=== PATIENT | female | born 1940 | race Caucasian/White ===

== ENCOUNTER → 2021-06-04 09:55 | Outpatient (CLI) | payer SELFPAY ==
[2020-11-12 13:01] VITALS: BMI 24.0
--- NOTE | 2021-06-04 10:02 | CDU_ITS ---
Reason For Study: Carotid stenosis Rt. Velocities/BP Lt. Velocities/BP Prox CCA 86.5/14.7 cm/sec. Prox CCA 89/21.2 cm/sec. Mid CCA 74.7/21.3 cm/sec. Mid CCA 78.6/21.2 cm/sec. Dist CCA 68.2/13.4 cm/sec. Dist CCA 70.8/17.3 cm/sec. Prox ICA 63/17.3 cm/sec. Prox ICA 160.9/46.7 cm/sec. Mid ICA 74.7/21.3 cm/sec. Mid ICA 110.1/31.6 cm/sec. Dist ICA 99.5/30.4 cm/sec. Dist ICA 79/26.2 cm/sec. Rt. ICA/CCA = 1.33. Lt. ICA/CCA = 2.05. Prox ECA 106/9.5 cm/sec. Prox ECA 69.5/8.2 cm/sec. Rt. Vert. 48.6/10.8 cm/sec. Lt. Vert. 45.4/16.8 cm/sec. Right Extracranial There is intimal thickening but no significant atherosclerotic plaque noted in the right common carotid artery. There is heterogeneous, irregular atherosclerotic plaque noted in the right internal carotid artery. There is intimal thickening but no significant atherosclerotic plaque noted in the right external carotid artery. Antegrade flow is noted in the right vertebral artery. Left Extracranial There is homogeneous, smooth atherosclerotic plaque noted in the left common carotid artery. There is heterogeneous, irregular atherosclerotic plaque noted in the left internal carotid artery. There is homogeneous, smooth atherosclerotic plaque noted in the left internal carotid artery. There is intimal thickening but no significant atherosclerotic plaque noted in the left external carotid artery. Antegrade flow is noted in the left vertebral artery. Procedure Carotid Duplex [id number]. This is a Carotid Duplex examination using B-mode, color flow and specral Doppler. Exam performed in department. VL/Carotid Duplex Ultrasound Interpretation Summary Minimal calcific plaque at the proximal right internal carotid artery with less than 50% stenosis. Less than 50% stenosis right external carotid artery Minimal calcific plaque within the proximal left internal carotid artery althou gh anechoic soft plaque identified. 50 to 69% stenosis left proximal internal carotid artery Less than 50% stenosis left external carotid artery Patent and antegrade vertebral arteries bilaterally Ordering Physician: Yoni Greenberg Referring Physician: Ling Aragon Performed By: Amparo Sofia RVT
== END ==
PROVIDERS: PCP Nurse Practitioner Family; Referring Provider Surgery; Visit Provider Surgery
DX: I65.23 Occlusion and stenosis of bilateral carotid arteries (principal)
CPT/HCPCS: 93880

== ENCOUNTER → 2022-06-18 | Outpatient (CLI) | payer SELFPAY ==
--- NOTE | 2022-06-18 11:07 | CDU_ITS ---
Reason For Study: CAROTID STENOSIS Rt. Velocities/BP Lt. Velocities/BP Prox CCA 58.9/11.6 cm/sec. Prox CCA 89.7/23.7 cm/sec. Mid CCA 67.4/17.3 cm/sec. Mid CCA 60.0/14.9 cm/sec. Dist CCA 56.0/14.5 cm/sec. Dist CCA 68.8/18.2 cm/sec. Prox ICA 55.1/20.1 cm/sec. Prox ICA 137.4/40.8 cm/sec. Mid ICA 79.6/25.8 cm/sec. Mid ICA 98.8/25.9 cm/sec. Dist ICA 90.0/35.2 cm/sec. Dist ICA 93.0/34.7 cm/sec. Rt. ICA/CCA = 1.3. Lt. ICA/CCA = 2.3. Prox ECA 93.8/10.7 cm/sec. Prox ECA 83.1/9.5 cm/sec. Rt. Vert. 38.4/6.2 cm/sec. Lt. Vert. 43.3/12.7 cm/sec. Right Extracranial There is intimal thickening but no significant atherosclerotic plaque noted in the right common carotid artery. There is heterogeneous, irregular atherosclerotic plaque noted in the right internal carotid artery. There is homogeneous, irregular atherosclerotic plaque noted in the right external carotid artery. Antegrade flow is noted in the right vertebral artery. Left Extracranial There is intimal thickening but no significant atherosclerotic plaque noted in the left common carotid artery. There is heterogeneous, irregular atherosclerotic plaque noted in the left internal carotid artery. There is heterogeneous, irregular atherosclerotic plaque noted in the left external carotid artery. Antegrade flow is noted in the left vertebral artery. Procedure Carotid Duplex [id number]. This is a Carotid Duplex examination using B-mode, color flow and specral Doppler. The exam was diagnostic. Exam performed in department. VL/Carotid Duplex Ultrasound Interpretation Summary Irregular calcific plaque at the proximal right internal carotid artery with le ss than 50% stenosis Less than 50% stenosis right external carotid artery Minimal calcific plaque of the proximal left internal carotid artery with 50 to 69% stenosis Less than 50% stenosis left external carotid artery Patent and antegrade vertebral arteries bilaterally No change from the previous examination of June 04, 2021 Ordering Physician: Yoni Greenberg Referring Physician: Yoni Greenberg Performed By: Epi Bledsoe RVT
== END | disposition home or self-care (01) ==
LOC: CVS 11:05
PROVIDERS: PCP Nurse Practitioner Family; Referring Provider Surgery; Visit Provider Surgery
DX: I65.23 Occlusion and stenosis of bilateral carotid arteries (principal)
CPT/HCPCS: 93880

== ENCOUNTER → 2024-07-06 | Outpatient (CLI) | payer MEDICARE, SELFPAY ==
--- NOTE | 2024-07-06 10:39 | CDU_ITS ---
Reason For Study: Lt Carotid Stenosis Rt. Velocities/BP Lt. Velocities/BP Prox CCA 86.7/15.5 cm/sec. Prox CCA 92.8/19.2 cm/sec. Mid CCA 51.1/10.6 cm/sec. Mid CCA 81.8/19.5 cm/sec. Dist CCA 63.4/15.5 cm/sec. Dist CCA 66.7/16.6 cm/sec. Prox ICA 75.6/20.4 cm/sec. Prox ICA 132.6/35.8 cm/sec. Mid ICA 97.7/22.8 cm/sec. Mid ICA 103.4/28.5 cm/sec. Dist ICA 97.7/30.2 cm/sec. Dist ICA 97.7/25.3 cm/sec. Rt. ICA/CCA = 1.9. Lt. ICA/CCA = 1.6. Prox ECA 92.8/10.6 cm/sec. Prox ECA 74.3/9.5 cm/sec. Rt. Vert. 51.1/6.6 cm/sec. Lt. Vert. 45.9/13.6 cm/sec. Right Extracranial There is intimal thickening but no significant atherosclerotic plaque noted in the right common carotid artery. There is heterogeneous, irregular atherosclerotic plaque noted in the right internal carotid artery. There is intimal thickening but no significant atherosclerotic plaque noted in the right external carotid artery. Antegrade flow is noted in the right vertebral artery. Left Extracranial There is intimal thickening but no significant atherosclerotic plaque noted in the left common carotid artery. There is heterogeneous, irregular atherosclerotic plaque noted in the left internal carotid artery. There is intimal thickening but no significant atherosclerotic plaque noted in the left external carotid artery. Antegrade flow is noted in the left vertebral artery. Procedure Carotid Duplex [id number]. This is a Carotid Duplex examination using B-mode, color flow and specral Doppler. The exam was diagnostic. Exam performed in department. VL/Carotid Duplex Ultrasound Interpretation Summary Mild (<50%) stenosis right extracranial internal carotid. Moderate (50-69%) stenosis left extracranial internal carotid. Patent and antegrade vertebrals bilaterally. Ordering Physician: Dimitrios Gaston Referring Physician: Ling Aragon Performed By: Epi Bledsoe RVT
== END | disposition home or self-care (01) ==
LOC: CVS 10:39
PROVIDERS: PCP Nurse Practitioner Family; Referring Provider Surgery Trauma Surgery; Visit Provider Surgery Trauma Surgery
DX: I65.23 Occlusion and stenosis of bilateral carotid arteries (principal)
CPT/HCPCS: 93880

== ENCOUNTER → 2025-07-05 | Outpatient (CLI) | payer MEDICARE, SELFPAY ==
--- NOTE | 2025-07-05 08:49 | CDU_ITS ---
Reason For Study VL/Carotid Duplex Ultrasound
== END | disposition home or self-care (01) ==
PROVIDERS: Referring Provider Physician Assistant; Visit Provider Physician Assistant
DX: I65.22 Occlusion and stenosis of left carotid artery (principal)
CPT/HCPCS: 93880